=== PATIENT | female | born 1970 | race Caucasian/White ===

== ENCOUNTER → 2016-11-16 | Outpatient (CLI) | payer OTHER ==
[~2016-11-16] MED LIST: AMBI5TAB PO; ATOR20TA PO; ATOR20TA15 PO; CLAR10TA13 PO; CO Q100C9 PO; D32000TA PO; LEVO112T2 PO; LEVO125T4 PO; LISI-363 PO; LISI-515 PO; METHO500 PO; POTA1TAB4 PO; POTA20IN3 PO; RED600TA PO; ROXI5TAB4 PO; ZOLP1TAB32 PO
[2016-11-16 08:30] LABS: ALKALINE PHOSPHATASE 85 U/L (45-117); ALT (GPT) 32 U/L (10-53); ANION GAP 8 MEQ/L (5-15); AST (GOT) 18 U/L (15-37); BICARBONATE 29.4 MEQ/L (21.0-32.0); BLOOD UREA NITROGEN 8 MG/DL (7-18); CHLORIDE 104 MEQ/L (98-107); GAMMA GT 169 U/L (5-55); GLOMERULAR FILTRATION RATE 96 ML/MIN (>89); GLUCOSE,FASTING 85 MG/DL (74-99); HDL CHOLESTEROL 44.8 MG/DL (40.0-60.0); LDL CHOLESTEROL 72 MG/DL (0-99); POTASSIUM 4.1 MEQ/L (3.5-5.1); SODIUM (NA) 141 MEQ/L (136-145); TOTAL BILIRUBIN ADULT 0.3 MG/DL (0.2-1.0)
== END ==
LOC: CLAB 07:27
PROVIDERS: ATTEND Family Medicine
DX: I10 Essential (primary) hypertension (principal); R74.0 Nonspecific elevation of levels of transaminase and lactic acid dehydrogenase [LDH]; E03.9 Hypothyroidism, unspecified; E78.5 Hyperlipidemia, unspecified; E87.6 Hypokalemia
CPT/HCPCS: 36415; 80053; 80061; 82248; 82977; 84443

== ENCOUNTER → 2016-12-13 | Outpatient (CLI) | payer OTHER ==
[~2016-12-13] VITALS: Ht 167.6 cm; Wt 73.9 kg
[~2016-12-13] MED LIST changes: -ATOR20TA PO; -CLAR10TA13 PO; -CO Q100C9 PO; -D32000TA PO; +HYOSCYAMINE 0.5 MG/ML AMP IVP ONE; -LEVO112T2 PO; -LISI-363 PO; -METHO500 PO; -POTA20IN3 PO; +PROPOFOL 200 MG/20 ML AMP IV ONE; -RED600TA PO; -ROXI5TAB4 PO; -ZOLP1TAB32 PO
[2016-12-13 08:38] VITALS: BP 153/80; PULSE 89; RESP 20; TEMP 98; O2SAT 98
[2016-12-13 09:51] VITALS: TEMP 97.7
[2016-12-13 10:15] VITALS: BP 153/77; PULSE 90; RESP 16; O2SAT 98
--- NOTE | 2016-12-14 16:15 | MR ---
cc: ANGELINA MIN M.D. DATE: 12/14/2016 PROCEDURE: Colonoscopy with biopsy and polypectomy. INDICATIONS FOR PROCEDURE: Evaluation of chronic diarrhea. Photographs were taken. PREMEDICATION Administered by anesthesiology. Monitoring was, pulse oximeter, EKG, blood pressure monitor. PROCEDURE NOTE After informed consent was obtained and procedure risks and benefits were explained including risks of bleeding source, perforation, risks of anesthesia, risks of missing lesions. The patient was placed left from position. The video colonoscope was certain rectum, passed through the cecum and terminal ileum in the usual fashion. Preparation was excellent. Extraction time was greater than 6 minutes. The scope was gradually withdrawn. Random biopsies were taken throughout the colon as mucosa appeared to be grossly normal throughout. There was scattered diverticulosis in the descending colon and transverse colon. In the descending colon at 40 cm, one small of 6 mm polyp was successfully snared off with a polypectomy snare and retrieved. In the rectum the scope was retroflexed and very tiny junctional hemorrhoids were noted. The scope was removed. The patient on procedure well. She was sent to recovery room in stable condition. IMPRESSION This examination revealed normal colon mucosa throughout including the terminal ileum biopsies were taken to rule out microscopic disease. The patient has scattered diverticulosis transverse colon and descending colon. One small polyp was removed from the descending colon by snare technique. PLAN 1. Would recommend follow up the histopathology of the biopsies taken today. 2. Follow up clinically as an outpatient for further recommendations. 3. Rule out microscopic colitis at this point. MD KATERINA Rueda/gorge /9:53 AM /3:36 PM
== END ==
LOC: HEND 07:53
PROVIDERS: ATTEND Internal Medicine Gastroenterology
DX: K63.5 Polyp of colon (principal); K64.8 Other hemorrhoids; K57.30 Diverticulosis of large intestine without perforation or abscess without bleeding
CPT/HCPCS: 45385; 88305; 99156; 99157; J1980

== ENCOUNTER → 2017-03-18 | Outpatient (CLI) | payer OTHER ==
[~2017-03-18] MED LIST changes: -HYOSCYAMINE 0.5 MG/ML AMP IVP ONE; -PROPOFOL 200 MG/20 ML AMP IV ONE
[2017-03-18 07:56] LABS: HEMATOCRIT 36.5 % (35.0-46.0); MEAN CELL VOLUME 94.1 FL (80.0-100.0); MEAN CORPUSCULAR HEMOGLOBIN 31.1 PG (27.0-34.0); PLATELET COUNT 256 TH/MM3 (150-450); RED BLOOD COUNT 3.87 MIL/MM3 (4.00-5.30); RED CELL DISTRIBUTION WIDTH 12.6 % (11.6-17.2); REVIEW FLAG FINAL
[2017-03-18 08:05] LABS: ALT (GPT) 53 U/L (10-53); ANION GAP 5 MEQ/L (5-15); AST (GOT) 48 U/L (15-37); BICARBONATE 32.1 MEQ/L (21.0-32.0); BLOOD UREA NITROGEN 9 MG/DL (7-18); CHLORIDE 104 MEQ/L (98-107); GLUCOSE,FASTING 82 MG/DL (74-99); POTASSIUM 3.7 MEQ/L (3.5-5.1); SODIUM (NA) 141 MEQ/L (136-145)
[2017-03-18 08:15] LABS: ALKALINE PHOSPHATASE 101 U/L (45-117); GLOMERULAR FILTRATION RATE 103 ML/MIN (>89); HDL CHOLESTEROL 52.1 MG/DL (40.0-60.0); LDL CHOLESTEROL 57 MG/DL (0-99); TOTAL BILIRUBIN ADULT 0.3 MG/DL (0.2-1.0)
[2017-03-18 11:27] LABS: HEMOGLOBIN A1a 1.1 %; HEMOGLOBIN A1b 1.4 %; HEMOGLOBIN LA1C 1.8 %; HEMOGLOBIN P3 3.4 %
== END ==
LOC: CLAB 07:16
PROVIDERS: ATTEND Family Medicine
DX: Z00.00 Encounter for general adult medical examination without abnormal findings (principal); Z13.9 Encounter for screening, unspecified; Z13.220 Encounter for screening for lipoid disorders; Z12.11 Encounter for screening for malignant neoplasm of colon; Z13.1 Encounter for screening for diabetes mellitus; R74.0 Nonspecific elevation of levels of transaminase and lactic acid dehydrogenase [LDH]
CPT/HCPCS: 36415; 80053; 80061; 83036; 84443; 85027

== ENCOUNTER → 2017-06-12 | Day surgery (SDC) | payer OTHER ==
[~2017-06-12] VITALS: Ht 167.6 cm; Wt 73.5 kg
[~2017-06-12] MED LIST changes: +BUPIVACAINE HCL PF 0.5% 30 ML VIAL ONE; +CHLORHEXIDINE GLUCONATE 2 % 1 PACK (2 CLOTHS) TOPICAL PRN; +INSULIN HUMAN REGULAR 1,000 UNITS/10 ML VIAL SQ PRN; +LACTATED RINGER'S 1000 ML IV PRN; +LIDOCAINE HCL 2% 50 ML VIAL ONE; +LORA-400 PO; +METOPROLOL TARTRATE 25 MG TAB PO PRN; +NEOMYCIN/POLYMYXIN 1 ML G.U. IRRIGANT ONE; +PEPP90CA PO; +POVIDONE IODINE 5% (ANTISEPSIS KIT) 4 APPLICATIONS EACH NARE PRN; +SODIUM CHLORID 0.9% 500 ML IV PRN; +VITA200C3 PO; +VITD400 PO
[2017-06-12 07:45] VITALS: BP 161/111; PULSE 84; TEMP 97.5; O2SAT 99
== END | disposition home or self-care (01) ==
LOC: PHSDC 07:27
PROVIDERS: ATTEND Orthopaedic Surgery Hand Surgery
DX: G56.01 Carpal tunnel syndrome, right upper limb (principal); L98.8 Other specified disorders of the skin and subcutaneous tissue; Z53.09 Procedure and treatment not carried out because of other contraindication
CPT/HCPCS: 99211

== ENCOUNTER → 2017-06-18 | Outpatient (CLI) | payer OTHER ==
[~2017-06-18] MED LIST changes: -BUPIVACAINE HCL PF 0.5% 30 ML VIAL ONE; +CEPH-460 PO; -CHLORHEXIDINE GLUCONATE 2 % 1 PACK (2 CLOTHS) TOPICAL PRN; -INSULIN HUMAN REGULAR 1,000 UNITS/10 ML VIAL SQ PRN; -LACTATED RINGER'S 1000 ML IV PRN; +LEVO112T2 PO; -LIDOCAINE HCL 2% 50 ML VIAL ONE; -METOPROLOL TARTRATE 25 MG TAB PO PRN; -NEOMYCIN/POLYMYXIN 1 ML G.U. IRRIGANT ONE; +NORC5TAB PO; -POVIDONE IODINE 5% (ANTISEPSIS KIT) 4 APPLICATIONS EACH NARE PRN; +SACC1CAP3 PO; -SODIUM CHLORID 0.9% 500 ML IV PRN
[2017-06-18 08:07] LABS: ANION GAP 9 MEQ/L (5-15); AST (GOT) 43 U/L (15-37); BICARBONATE 28.9 MEQ/L (21.0-32.0); BLOOD UREA NITROGEN 9 MG/DL (7-18); CHLORIDE 100 MEQ/L (98-107); GLOMERULAR FILTRATION RATE 92 ML/MIN (>89); GLUCOSE,FASTING 85 MG/DL (74-99); POTASSIUM 3.7 MEQ/L (3.5-5.1); SODIUM (NA) 138 MEQ/L (136-145)
[2017-06-18 08:18] LABS: ALKALINE PHOSPHATASE 100 U/L (45-117); ALT (GPT) 51 U/L (10-53); HDL CHOLESTEROL 45.7 MG/DL (40.0-60.0); LDL CHOLESTEROL 93 MG/DL (0-99); TOTAL BILIRUBIN ADULT 0.2 MG/DL (0.2-1.0)
== END ==
LOC: CLAB 07:01
PROVIDERS: ATTEND Family Medicine
DX: R74.0 Nonspecific elevation of levels of transaminase and lactic acid dehydrogenase [LDH] (principal); K76.0 Fatty (change of) liver, not elsewhere classified; I10 Essential (primary) hypertension; E03.9 Hypothyroidism, unspecified; E78.5 Hyperlipidemia, unspecified; E87.6 Hypokalemia
CPT/HCPCS: 36415; 80053; 80061; 84443

== ENCOUNTER → 2017-06-19 | Day surgery (SDC) | payer OTHER ==
[~2017-06-19] VITALS: Ht 172.7 cm; Wt 73.8 kg
[~2017-06-19] MED LIST changes: +*morphine SULFATE 8 MG/ML PERIprocedure ONLY ONE; +ACETAMINOPHEN/HYDROcodone 325 MG/5 MG TAB ONE; +ACETAMINOPHEN/HYDROcodone 325 MG/5 MG TAB PO PRN; +BUPIVACAINE HCL PF 0.25% 30 ML VIAL INFIL ONE; +CHLORHEXIDINE GLUCONATE 2 % 1 PACK (2 CLOTHS) TOPICAL PRN; +DO NOT ADM ANY ANTICOAGULANT DRUGS PRN; +FAMOTIDINE 20 MG/2 ML VIAL ONE; +INSULIN HUMAN REGULAR 1,000 UNITS/10 ML VIAL SQ PRN; +LACTATED RINGER'S 1000 ML INJ 1,000 ML IV ONE; +LACTATED RINGER'S 1000 ML IV PRN; -LEVO125T4 PO; +LIDOCAINE HCL 2% 50 ML VIAL INFIL ONE; +MEPERIDINE HCL 50 MG/ML VIAL IM PRN; +METOPROLOL TARTRATE 25 MG TAB PO PRN; +MIDAZOLAM HCL 2 MG/2 ML VIAL ONE; +NEOMYCIN/POLYMYXIN 1 ML G.U. IRRIGANT TOPICAL ONE; +POVIDONE IODINE 5% (ANTISEPSIS KIT) 4 APPLICATIONS EACH NARE PRN; +PROPOFOL 200 MG/20 ML AMP IV ONE; +SODIUM CHLORID 0.9% 500 ML IV PRN; +SODIUM CHLORIDE 0.9% INJ 100 ML ONE; +TRIAMCINOLONE ACETONIDE 40 MG/ML VIAL I-BURSAL ONE; +TRIAMCINOLONE ACETONIDE 40 MG/ML VIAL ONE; +ceFAZolin 1,000 MG/NS 100 ML IV SCH; +ceFAZolin INJ 1,000 MG VIAL ONE; +fentaNYL CITRATE 250 MCG/5 ML AMP ONE
[2017-06-19 09:42] VITALS: BP 153/97; PULSE 96; RESP 20; TEMP 98; O2SAT 98
[2017-06-19 10:01] LABS: AUTOMATED NEUTROPHIL # 3.8 TH/MM3 (1.8-7.7); BASOPHIL # 0.1 TH/MM3 (0-0.2); BASOPHIL % 1.2 % (0.0-2.0); EOSINOPHIL # 0.2 TH/MM3 (0-0.4); HEMO FLAGS DIFF FINAL; LYMPH % 37.4 % (9.0-44.0); MEAN CELL VOLUME 93.5 FL (80.0-100.0); MEAN CORPUSCULAR HEMOGLOBIN 32.9 PG (27.0-34.0); MEAN CORPUSCULAR HGB CONC 35.2 % (32.0-36.0); MONO % 11.6 % (0.0-8.0); NEUT % 47.8 % (16.0-70.0); PLATELET COUNT 238 TH/MM3 (150-450); RED BLOOD COUNT 3.85 MIL/MM3 (4.00-5.30); RED CELL DISTRIBUTION WIDTH 12.4 % (11.6-17.2)
[2017-06-19 13:13] VITALS: BP 130/75; PULSE 80; RESP 16; TEMP 97.2; O2SAT 97
--- NOTE | 2017-06-20 05:47 | MP ---
cc: KEL MCHUGH III, M.D. DATE OF OPERATION 06/19/2017 PREOPERATIVE DIAGNOSIS Bilateral carpal tunnel syndrome PROCEDURE 1. Right open carpal tunnel release. 2. Left carpal tunnel steroid injection. PROCEDURE The patient was brought to the operating room, placed supine on the operating table. After the correct site and side of surgery were verified by members of each team in the room multiple times including the patient and myself and after adequate preoperative time-out was performed to everyone's satisfaction, after adequate IV sedation achieved, the right upper extremity was prepped and draped in traditional sterile surgical fashion. A 50/50 mixture of 2% plain lidocaine and 0.5% Marcaine was infiltrated in the skin and subcutaneous tissue at the base of the palm and at the wrist, into the carpal tunnel. The limb was exsanguinated with a gentle Armani wrap and a highly placed well-padded tourniquet was inflated to 225 mmHg for a total of 11 minutes. A longitudinally oriented incision was made at the base of the palm within the skin creases and carried down through skin and subcutaneous tissue. Bipolar electrocautery was used as needed. The transverse carpal ligament was identified and was divided in its midline in its entirety from its proximal-most to its distal-most extents, completely opening and freeing the carpal tunnel contents which appeared to be intact and otherwise uncompromised. The motor branch of the thenar muscle was identified as well and maintained. There were no other anatomic abnormalities identified. No mass effect was identified. Thorough irrigation with 1 liter's worth of saline was used and then the skin edges were reapproximated running and interrupted 4-0 nylon sutures. The hand and arm were thoroughly cleansed and dried, Betadine Adaptic dressing applied on top of the wound, followed by a bulky soft dressing and a circumferential Armani wrap in the usual fashion. The axillary tourniquet was released after 11 minutes and the hand and all the fingers became immediately soft, pink and warm and had brisk capillary refill of less than 2 seconds. The left carpal tunnel was then sterilely injected in the usual fashion with 2:1 mixture of 2% plain lidocaine and Kenalog 40 mg/mL for a total 3 cc of injectate to the carpal tunnel. Pressure dressing was applied. Capillary refill was less than 2 seconds on each side. Kel MD SHRUTI Alvarez III/SSB /11:47 AM /5:33 AM
== END | disposition home or self-care (01) ==
LOC: HSDC 09:06
PROVIDERS: ATTEND Orthopaedic Surgery Hand Surgery
DX: G56.03 Carpal tunnel syndrome, bilateral upper limbs (principal); I10 Essential (primary) hypertension; E78.5 Hyperlipidemia, unspecified; E03.9 Hypothyroidism, unspecified; Z87.891 Personal history of nicotine dependence; Z79.899 Other long term (current) drug therapy
CPT/HCPCS: 01810; 20526; 64721; 85025; J0690; J2250; J2270; J3010; J3301; J7120

== ENCOUNTER → 2017-09-25 | Outpatient (CLI) | payer OTHER ==
[~2017-09-25] MED LIST changes: -*morphine SULFATE 8 MG/ML PERIprocedure ONLY ONE; -ACETAMINOPHEN/HYDROcodone 325 MG/5 MG TAB ONE; -ACETAMINOPHEN/HYDROcodone 325 MG/5 MG TAB PO PRN; -BUPIVACAINE HCL PF 0.25% 30 ML VIAL INFIL ONE; -CEPH-460 PO; -CHLORHEXIDINE GLUCONATE 2 % 1 PACK (2 CLOTHS) TOPICAL PRN; -DO NOT ADM ANY ANTICOAGULANT DRUGS PRN; -FAMOTIDINE 20 MG/2 ML VIAL ONE; -INSULIN HUMAN REGULAR 1,000 UNITS/10 ML VIAL SQ PRN; -LACTATED RINGER'S 1000 ML INJ 1,000 ML IV ONE; -LACTATED RINGER'S 1000 ML IV PRN; -LIDOCAINE HCL 2% 50 ML VIAL INFIL ONE; -MEPERIDINE HCL 50 MG/ML VIAL IM PRN; -METOPROLOL TARTRATE 25 MG TAB PO PRN; -MIDAZOLAM HCL 2 MG/2 ML VIAL ONE; -NEOMYCIN/POLYMYXIN 1 ML G.U. IRRIGANT TOPICAL ONE; -NORC5TAB PO; -POVIDONE IODINE 5% (ANTISEPSIS KIT) 4 APPLICATIONS EACH NARE PRN; -PROPOFOL 200 MG/20 ML AMP IV ONE; -SODIUM CHLORID 0.9% 500 ML IV PRN; -SODIUM CHLORIDE 0.9% INJ 100 ML ONE; -TRIAMCINOLONE ACETONIDE 40 MG/ML VIAL I-BURSAL ONE; -TRIAMCINOLONE ACETONIDE 40 MG/ML VIAL ONE; -ceFAZolin 1,000 MG/NS 100 ML IV SCH; -ceFAZolin INJ 1,000 MG VIAL ONE; -fentaNYL CITRATE 250 MCG/5 ML AMP ONE
[2017-09-25 08:05] LABS: ALT (GPT) 70 U/L (10-53); ANION GAP 8 MEQ/L (5-15); AST (GOT) 67 U/L (15-37); BICARBONATE 27.9 MEQ/L (21.0-32.0); BLOOD UREA NITROGEN 7 MG/DL (7-18); CHLORIDE 103 MEQ/L (98-107); GLOMERULAR FILTRATION RATE 94 ML/MIN (>89); GLUCOSE,FASTING 88 MG/DL (74-99); POTASSIUM 3.5 MEQ/L (3.5-5.1); SODIUM (NA) 139 MEQ/L (136-145)
[2017-09-25 08:16] LABS: ALKALINE PHOSPHATASE 88 U/L (45-117); HDL CHOLESTEROL 65.4 MG/DL (40.0-60.0); LDL CHOLESTEROL 56 MG/DL (0-99); TOTAL BILIRUBIN ADULT 0.4 MG/DL (0.2-1.0)
== END ==
LOC: CLAB 07:12
PROVIDERS: ATTEND Family Medicine
DX: K76.0 Fatty (change of) liver, not elsewhere classified (principal); I10 Essential (primary) hypertension; E03.9 Hypothyroidism, unspecified; E78.5 Hyperlipidemia, unspecified; E87.6 Hypokalemia; G47.01 Insomnia due to medical condition; M50.30 Other cervical disc degeneration, unspecified cervical region; R74.0 Nonspecific elevation of levels of transaminase and lactic acid dehydrogenase [LDH]
CPT/HCPCS: 36415; 80053; 80061; 84443

== ENCOUNTER → 2017-12-13 | Outpatient (CLI) | payer OTHER ==
[2017-12-13 08:20] LABS: AST (GOT) 56 U/L (15-37); BICARBONATE 29.3 MEQ/L (21.0-32.0); BLOOD UREA NITROGEN 12 MG/DL (7-18); CALCIUM 9.4 MG/DL (8.5-10.1); CHLORIDE 101 MEQ/L (98-107); CREATININE 0.66 MG/DL (0.50-1.00); GLOMERULAR FILTRATION RATE 95 ML/MIN (>89); GLUCOSE,FASTING 94 MG/DL (74-99); SODIUM (NA) 138 MEQ/L (136-145)
[2017-12-13 08:21] LABS: ALT (GPT) 92 U/L (10-53); CHOLESTEROL 148 MG/DL (120-200); TRIGLYCERIDES 109 MG/DL (42-150)
[2017-12-13 08:31] LABS: ALKALINE PHOSPHATASE 106 U/L (45-117); CHOLESTEROL/ HDL RATIO 2.83 RATIO; HDL CHOLESTEROL 52.2 MG/DL (40.0-60.0); LDL CHOLESTEROL 74 MG/DL (0-99); TOTAL BILIRUBIN ADULT 0.5 MG/DL (0.2-1.0); TOTAL PROTEIN 7.6 GM/DL (6.4-8.2)
== END ==
LOC: CLAB 07:16
DX: K76.0 Fatty (change of) liver, not elsewhere classified (principal); R74.0 Nonspecific elevation of levels of transaminase and lactic acid dehydrogenase [LDH]; I10 Essential (primary) hypertension; E03.9 Hypothyroidism, unspecified; E78.5 Hyperlipidemia, unspecified; E87.6 Hypokalemia; M50.30 Other cervical disc degeneration, unspecified cervical region; G47.01 Insomnia due to medical condition
CPT/HCPCS: 36415; 80053; 80061; 84443

== ENCOUNTER → 2018-03-21 | Outpatient (CLI) | DX: E78.5 Hyperlipidemia, unspecified (principal); E03.9 Hypothyroidism, unspecified ==